=== PATIENT | female | born 1995 | race Caucasian/White ===

== ENCOUNTER 2021-03-18 18:10 | Emergency (ER) | payer OTHER ==
[~2021-03-18] VITALS: Ht 177.8 cm; Wt 127.0 kg
[2021-03-18 18:26] VITALS: BP 156/106
[2021-03-18 18:30] VITALS: BP 156/106
[2021-03-18] MEDS ORDERED: METO-486 PO (19:10)
[2021-03-18] MEDS ORDERED: IBUP-2213 PO (19:10)
[2021-03-18] MEDS: METOCLOPRAMIDE 10 MG TAB PO ONE (19:25)
== END 2021-03-18 19:32 | disposition home or self-care (01) ==
LOC: MED 18:10
DX: G43.909 Migraine, unspecified, not intractable, without status migrainosus (principal); R10.30 Lower abdominal pain, unspecified
CPT/HCPCS: 81002; 81025; 99283; J8597